=== PATIENT | female | born 1955 | race Caucasian/White ===

== ENCOUNTER 2024-12-14 20:56 | Emergency (ER) | payer OTHER ==
--- NOTE | 2024-12-14 21:20 | RAD REPORT ---
EXAM: CT brain without contrast HISTORY: STROKE ALERT COMPARISON: None TECHNIQUE: Multiple contiguous axial images were obtained and a CT of the brain without contrast. Sag ittal and coronal reformats were performed. One or more of the following dose reduction techniques were used: Automated exposure control, adjust ment of the mA and/or kV according to patient size, and/or iterative reconstruction. FINDINGS: No evidence of hydrocephalus, intracranial hemorrhage, or extra-axial fluid collection. The brain is normal in morphology. No evidence of midline shift or areas of brain edema. The calvarium is intact. The visualized paranasal sinuses and mastoid air cells are essentially clear . IMPRESSION: No evidence of acute intracranial abnormality. The findings were communicated with Ravindra De La Garza MD at 12/14/2024 9:18 PM by telephone.
[2024-12-14] MEDS ORDERED: TENECTEPLASE 50 MG/10 ML VIAL IV ONE (21:22)
[2024-12-14] MEDS ORDERED: HYDRALAZINE HCL 20 MG/ML VIAL ONE (21:26)
[2024-12-14] MEDS ORDERED: LORazepam 2 MG/ML VIAL ONE (21:40)
[2024-12-14] MEDS ORDERED: ONDANSETRON 4 MG/2 ML VIAL ONE (21:47)
[2024-12-14] MEDS ORDERED: NA CHLORIDE 0.9% 1,000 ML ONE (21:47)
[2024-12-14 21:50] LABS: Absolute Lymphocytes (CBC) 1.9 K/uL (0.7-4.9); Hematocrit 44.9 % (36.0-45.0); Hemoglobin 14.4 g/dL (12.0-15.0); MCH 25.7 pg (27.0-35.0); MCHC 32.0 g/dL (32.0-36.0); MCV 80.5 fL (80-100); MPV 8.7 fL (7.6-11.3); Nucleated RBC Absolute Count 0.0 (0-0); Nucleated Red Blood Cells % 0.1 % (0-0); RBC Red Blood Cell Count 5.58 M/uL (3.86-4.86); White Blood Count 6.90 thou/uL (4.3-10.9)
[2024-12-14 22:00] LABS: ALT/SGPT 23 U/L (13-56); AST/SGOT 21 U/L (15-37); Albumin 3.4 g/dL (3.4-5.0); Albumin/Globulin Ratio 0.8 (1.1-1.8); Alkaline Phosphatase 133 U/L (45-117); Anion Gap 8.9 mEq/L (5.0-15.0); BUN Blood Urea Nitrogen 13 mg/dL (7-18); Globulin 4.1 g/dL (2.3-3.5); Glucose Level 113 mg/dL (74-106); Magnesium 2.2 mg/dL (1.6-2.4); Potassium 3.9 mEq/L (3.5-5.1); Troponin High Sensitivity 15.9 pg/mL (<58.9)
[2024-12-14 22:01] LABS: PT Prothrombin Time 10.9 SECONDS (10-13.0); PTT, Activated Partial Thromb 27.4 SECONDS (27.2-37.4); Protime INR 0.96
--- NOTE | 2024-12-14 22:19 | RAD REPORT ---
EXAMINATION: ONE VIEW CHEST XR CLINICAL INDICATION: weak TECHNIQUE: Frontal chest projection is submitted. Examination is limited by patient positioning and t echnique. COMPARISON: No prior exam. FINDINGS: Mild interstitial pulmonary edema suspected. The heart is upper limit of normal in size. No displaced fractures identified. IMPRESSION: Mild CHF is possible.
[2024-12-14 22:27] LABS: Bilirubin Indirect, Calculated 0.0 mg/dL (0.2-0.8)
[2024-12-14 22:39] LABS: Anisocytosis 2+; Blood Morphology Comment NOTED (NOT SEEN); Microcytosis 1+; Ovalocytes 1+; White Blood Cell Scan OK (OK)
--- NOTE | 2024-12-15 00:32 | RAD REPORT ---
ADDENDUM #1 ADDENDUM: THIS REPORT CONTAINS FINDINGS THAT MAY BE CRITICAL TO PATIENT'S CARE: The findings were verbally discussed via telephone conference with Ravindra De La Garza MD by Dr. Lorenzo rivero on 12/15/2024 12:32 AM CDT. The results were acknowledged and understood. Electronically signed by: Shad Prachi RUBY 12/15/2024 12:32 AM CDT 9 End of Addendum PROCEDURE: CT Angiography Head and Neck With Intravenous Contrast CLINICAL INDICATION: The patient is 69 years old and is Female; STROKE ALERT TECHNIQUE: [place] of [place]/head and neck CT angiography protocol performed with intravenous contrast. This CT exam was performed using one or more of the following dose reduction techniques: automated exposure control, adjustment of the mA and/or kV according to patient size, and/or use of iterative r econstruction technique. MIP reconstructed images were created and reviewed. DLP: 350 mGy*cm COMPARISON: CT head without contrast of the same day. FINDINGS: HEAD: RIGHT ANTERIOR CEREBRAL ARTERY: Unremarkable. No occlusion or significant stenosis. Anterior co mmunicating artery is present. No aneurysm. RIGHT MIDDLE CEREBRAL ARTERY: Unremarkable. No occlusion or significant stenosis. No aneurysm. RIGHT POSTERIOR CEREBRAL ARTERY: Unremarkable. No occlusion or significant stenosis. No aneurys m. RIGHT INTRACRANIAL INTERNAL CAROTID ARTERY: Unremarkable. No significant stenosis. No dissectio n or occlusion. RIGHT INTRACRANIAL VERTEBRAL ARTERY: Unremarkable. No significant stenosis. No dissection or oc clusion. LEFT ANTERIOR CEREBRAL ARTERY: Unremarkable. No occlusion or significant stenosis. No aneurysm. LEFT MIDDLE CEREBRAL ARTERY: Focal occlusion of the left M2 segment superior division with paucity of distal branches in the left frontal parietal lobe. No aneurysm. LEFT POSTERIOR CEREBRAL ARTERY: Unremarkable. No occlusion or significant stenosis. No aneurysm . LEFT INTRACRANIAL INTERNAL CAROTID ARTERY: Unremarkable. No significant stenosis. No dissection or occlusion. LEFT INTRACRANIAL VERTEBRAL ARTERY: Unremarkable. No significant stenosis. No dissection or occ lusion. BASILAR ARTERY: Unremarkable. No occlusion or significant stenosis. No aneurysm. OTHER VASCULATURE: No vascular malformation. BRAIN AND EXTRA-AXIAL SPACES: Mild sulcal effacement in the left frontal parietal lobe concerning f or developing ischemic changes. NECK: RIGHT COMMON CAROTID ARTERY: Unremarkable. No significant stenosis. No dissection or occlusion. RIGHT EXTRACRANIAL INTERNAL CAROTID ARTERY: Less than 50% stenosis of the bilateral proximal cervic al ICAs, left worse than right. RIGHT EXTERNAL CAROTID ARTERY: Unremarkable. No occlusion. RIGHT EXTRACRANIAL VERTEBRAL ARTERY: Unremarkable. No significant stenosis. No dissection or oc clusion. LEFT COMMON CAROTID ARTERY: Unremarkable. No significant stenosis. No dissection or occlusion. LEFT EXTRACRANIAL INTERNAL CAROTID ARTERY: Less than 50% stenosis of the bilateral proximal cervica l ICAs, left worse than right. LEFT EXTERNAL CAROTID ARTERY: Unremarkable. No occlusion. LEFT EXTRACRANIAL VERTEBRAL ARTERY: Unremarkable. No significant stenosis. No dissection or occ lusion. LUNG APICES: Visualized lung zones are clear. HEAD and NECK: BONES/JOINTS: Multilevel degenerative changes of the cervical spine. Straightening of the cervical lordosis. Small anterolisthesis of C3 on C4. Osteopenia. No discrete lytic or blastic abnormalities. SOFT TISSUES: Unremarkable. CAROTID STENOSIS REFERENCE USING NASCET CRITERIA: % ICA stenosis = (1 - narrowest ICA diameter/diameter of distal cervical ICA) x 100. Mild - <50% stenosis. Moderate - 50-69% stenosis. Severe - 70-94% stenosis. Near occlusion - 95-99% stenosis. Occluded - 100% stenosis. IMPRESSION: 1. Focal occlusion of the left M2 segment superior division with paucity of distal branches in the left frontal parietal lobe. 2. Mild sulcal effacement in the left frontal parietal lobe concerning for developing ischemic salgado ges. MRI is recommended. 3. Less than 50% stenosis of the bilateral proximal cervical ICAs, left worse than right. 4. Multilevel degenerative changes of the cervical spine. Straightening of the cervical lordosis. S mall anterolisthesis of C3 on C4. Electronically signed by: Shad Velarde DO 12/15/2024 12:24 AM CDT 9 Due to temporary technical issues with the PACS/[employer] reporting system, reports are being carmelita d by the in-house radiologist without review as a courtesy to ensure prompt reporting the interpreting radiologist is fully responsible for the content of the report. Transcribed Date/Time: 12/15/2024 12:35 AM
--- NOTE | 2024-12-15 00:52 | ER ---
Nurse's Notes [facility] Name: Laura Henderson Age: 69 yrs Sex: Female : 1955 Arrival Date: 12/14/2024 Time: 20:56 Bed 3 Private MD: Diagnosis: Acute CVA , acute left frontoparietal CVA, M2 occlusion focal Presentation: 12/14 20:56 Chief complaint: Patient states: HEADACHE FOR TWO DAYS. ONE HOUR AGO STARTED HAVING ha1 RIGHT SIDE WEAKNESS AND SLURRED SPEECH. 20:56 Coronavirus screen: Client denies travel out of the [place] in the last 14 days. Ebola ha1 Screen: No symptoms or risks identified at this time. Initial Sepsis Screen: Does the patient meet any 2 criteria? No. Patient's initial sepsis screen is negative. Does the patient have a suspected source of infection? No. Patient's initial sepsis screen is negative. Risk Assessment: Do you want to hurt yourself or someone else? Patient reports no desire to harm self or others. Onset of symptoms was December 14, 2024. 20:56 Method Of Arrival: Wheelchair ha1 20:56 Acuity: MARIE 2 ha1 Triage Assessment: 21:00 The onset of the patients symptoms was less than three hours ago. af3 21:01 The onset of the patients symptoms was December 14, 2024 at 20:00. af3 Stroke Activation: Physician: ED Attending; Name: JUAN; Notified At: 20:56; Arrived At: Physician: Mid-Level Provider; Name: ; Notified At: 20:56; Arrived At: Physician: [not used]; Name: ; Notified At: ; Arrived At: Physician: [not used]; Name: ; Notified At: ; Arrived At: Physician: [not used]; Name: ; Notified At: ; Arrived At: Historical: - Allergies: 20:56 ozempic; ha1 20:56 PENICILLINS; ha1 20:56 Sulfa (Sulfonamide Antibiotics); ha1 20:56 Vibromycin; ha1 - PMHx: 20:56 acid reflux; Anxiety; COPD; Cyclic vomiting; depressive disorder; diabetes mellitus; ha1 DVT 2022; Fibromyalgia; Hypercholesterolemia; Hypertensive disorder; Mixed connective tissue disease; PTSD; RA; Thyroid problem; TIA; - PSHx: 20:56 Cholecystectomy; hysterectomy; thrombectomy; ha1 - Immunization history:: Adult Immunizations unknown. - Infectious Disease History:: Denies. - Social history:: Smoking status: unknown. Screenin:37 [facility] ED Fall Risk Assessment (Adult) History of falling in the last 3 months, af3 including since admission No falls in past 3 months (0 pts) Confusion or Disorientation No (0 pts) Intoxicated or Sedated No (0 pts) Impaired Gait No (0 pts) Mobility Assist Device Used No (0 pt) Altered Elimination No (0 pt) Score/Fall Risk Level 0 - 2 = Low Risk Oriented to surroundings, Maintained a safe environment, Educated pt \T\ family on fall prevention, incl call for assistance when getting out of bed. 21:37 Abuse screen: Denies threats or abuse. Denies injuries from another. Nutritional af3 screening: No deficits noted. Tuberculosis screening: No symptoms or risk factors identified. 22:06 Kennedy Swallow Protocol Exclusion Criteria: NPO for medical/surgical reason by provider cp4 order Yes MD Notified: Ravindra De La Garza MD. 12/15 01:12 Kennedy Swallow Protocol Brief Cognitive Screen What is your name? Normal, Where are you af3 right now? Normal, What year is it? Normal. Oral Mechanism Examination Facial Symmetry: Normal, Motion: Normal, Lip Closure: Normal, Oral Mechanism Result: Normal. 3 oz Water Swallow Challenge: Pt able to drink all water without stopping, coughing, choking or throat clearing: Yes Result: PASS MD Notified: Ravindra De La Garza MD. Assessment: 12/14 21:37 VAN Scoring: Arm Drift: Minor drift Visual Disturbance: No visual disturbance noted. af3 Aphasia: No aphasia noted. Neglect: No neglect noted. 21:37 Kennedy Swallow Protocol Exclusion Criteria: NPO for medical/surgical reason by provider af3 order Yes. TNKase (Tenecteplase) Screening: Indications: Definite evidence of stroke, ischemic, embolic, or hypertensive: Yes. Treatment will start within 4.5 hours onset of symptoms: Yes. No evidence of intracranial hemorrhage or CT of head and no evidence of peripheral hemorrhage or recent CVA: Yes. Consent for thrombolytic therapy: Yes. 21:37 General: Appears in no apparent distress. comfortable, well groomed, well developed, af3 Behavior is cooperative, appropriate for age, anxious. 21:37 Pain: Denies pain. Neuro: Level of Consciousness is awake, alert, obeys commands, af3 Oriented to person, place, time, situation, Appropriate for age Charge Manager are weak on right Gait is unsteady. Cardiovascular: Patient's skin is warm and dry. Respiratory: Airway is patent Respiratory effort is even, unlabored, Respiratory pattern is regular, symmetrical. 22:52 Reassessment: Patient appears in no apparent distress at this time. Patient and/or af3 family updated on plan of care and expected duration. Pain level reassessed. Patient is alert, oriented x 3, equal unlabored respirations, skin warm/dry/pink. 23:28 Elvira Swallow Protocol Brief Cognitive Screen. af3 12/15 00:24 Reassessment: Patient appears in no apparent distress at this time. Patient and/or af3 family updated on plan of care and expected duration. Pain level reassessed. Patient is alert, oriented x 3, equal unlabored respirations, skin warm/dry/pink. 01:25 Reassessment: Patient appears in no apparent distress at this time. Patient and/or af3 family updated on plan of care and expected duration. Pain level reassessed. Patient is alert, oriented x 3, equal unlabored respirations, skin warm/dry/pink. Vital Signs: 12/14 20:56 BP 177 / 98; Pulse 88; Resp 18; Temp 97.6; Pulse Ox 93% on R/A; Weight 69.4 kg; Height ha1 5 ft. 3 in. ; 21:30 BP 174 / 86; Pulse 80; Pulse Ox 94% on 3 lpm NC; af3 21:37 BP 163 / 86; Pulse 80; Resp 18; Pulse Ox 94% on 3 lpm NC; af3 21:45 BP 159 / 77; Pulse 80; Resp 18; Pulse Ox 94% on 2 lpm NC; af3 22:00 BP 127 / 84; Pulse 87; Resp 18; Pulse Ox 92% on 3 lpm NC; af3 22:20 BP 154 / 78; Pulse 88; Resp 18; Pulse Ox 92% on 3 lpm NC; af3 22:45 BP 149 / 84; Pulse 82; Resp 18; Pulse Ox 92% on 4 lpm NC; af3 12/15 00:25 BP 149 / 68; Pulse 80; Resp 18; Pulse Ox 95% on 4 lpm NC; af3 01:25 BP 160 / 76; Pulse 80; Resp 18; Pulse Ox 94% on 4 lpm NC; af3 12/14 20:56 Body Mass Index 27.10 (69.40 kg, 160.02 cm) ha1 [place]anda Coma Score: 12/14 21:08 Eye Response: spontaneous(4). Motor Response: obeys commands(6). Verbal Response: sp4 oriented(5). Total: 15. NIH Stroke Scale Scores: 21:08 NIHSS Score: 3 sp4 21:37 NIHSS Score: 3 af3 ED Course: 20:58 Patient arrived in ED. im 20:59 Ravindra De La Garza MD is Attending Physician. sp4 21:05 Inserted saline lock: 20 gauge in left antecubital area, using aseptic technique. Blood rv1 collected. Flushed with 10 mL NS. 21:11 Basic Metabolic Panel Sent. rv1 21:11 CBC with Diff Sent. rv1 21:11 Hepatic Function Sent. rv1 21:11 High Sensitivity Troponin Sent. rv1 21:11 Magnesium Sent. rv1 21:11 Protime (+inr) Sent. rv1 21:11 Ptt, Activated Sent. rv1 21:14 CT Stroke Brain w/o Contrast In Process Unspecified. EDMS 21:14 Arlene Storey, RN is Primary Nurse. af3 21:37 No provider procedures requiring assistance completed. af3 21:37 Patient has correct armband on for positive identification. Bed in low position. Call af3 light in reach. Provided Education on: call light use . 21:37 Arm band placed on. af3 22:05 Triage completed. ha1 22:08 Stroke CXR 1 View In Process Unspecified. EDMS 23:43 called to initiated transfer, was told to wait for CTA. marisabel 12/15 00:00 CT Head Angio In Process Unspecified. EDMS 00:00 CT Neck Angio In Process Unspecified. EDMS 00:54 0032 initiated transfer with Lamberto at [facility] . Pt was accepted \T\ 005 Accepting Alicia Almazan. Admin Lamberto R \T\005. Pt will go ground EMS per family request. ER to ER. Number for nurse to nurse report [phone]. [facility] ETA 15 MINS or less. 01:39 Patient transferred, IV remains in place. af3 Administered Medications: 12/14 21:28 Drug: hydrALAZINE IVP 10 mg IVP once Route: IVP; Site: left antecubital; ha1 23:21 Follow up: Response: No adverse reaction af3 21:38 Drug: Ativan IVP 1 mg IVP once Route: IVP; Site: left antecubital; ha1 23:21 Follow up: Response: No adverse reaction af3 21:41 Drug: TNK FOR STROKE - Tenecteplase IV (Administer 10 ml NS flush BEFORE and af3 AFTER tenecteplase) 17.5 mg IV at per protocol once; 0.25mg/kg, MAX DOSE 25 mg, IVP over 5 seconds {Co-Signature: al5 (Laura Coker RN).} Route: IV; Rate: per protocol; Site: right forearm; 22:00 Follow up: Response: No adverse reaction; IV Status: Completed infusion af3 21:53 Drug: NS 0.9% IV 1000 ml IV at 125 ml/hr once; to be given at 125 ml / hour Route: IV; al5 Rate: 125 ml/hr; Site: right forearm; 23:00 Follow up: Response: No adverse reaction; IV Status: Completed infusion; IV Intake: af3 1000ml 21:53 Drug: Ondansetron IVP 4 mg IVP once; over 2 minutes Route: IVP; Site: left antecubital; al5 23:21 Follow up: Response: No adverse reaction af3 12/15 01:24 Drug: LORazepam PO 1 mg PO once Route: PO; af3 01:42 Follow up: Response: No adverse reaction; Medication Administered at Departure af3 Medication: 12/14 21:37 VIS not applicable for this client. af3 Point of Care Testing: Blood Glucose: 21:21 Blood Glucose: 137 mg/dL; af3 Ranges: Intake: 23:00 IV: 1000ml; Total: 1000ml. af3 Outcome: 12/15 00:52 ER care complete, transfer ordered by MD. diaz 01:38 Transferred by [facility] to [facility], Transfer form af3 completed. 01:38 Condition: stable 01:38 Instructed on the need for transfer, Demonstrated understanding of instructions, follow-up care, 01:45 Patient left the ED. af3 NIH Stroke Scale - NIH Stroke Score Date: 12/14/2024 Time: 21:08 Total Score = 3 10. Dysarthria (speech clarity - read or repeat words) - 0(Normal) 11. Extinction and Inattention (visual/tactile/auditory/spatial/personal) - 0(No abnormality) 1a. Level of Consciousness (LOC) - 0(Alert) 1b. Level of Consciousness (LOC) (Month \T\ Age) - 0(Both) 1c. LOC Commands (Open \T\ Closes Eyes/Cartridge Loader) - 0(Both) 2. Best Gaze (Lateral Gaze Paresis) - 0(Normal) 3. Visual Field Loss - 0(No visual loss) 4. Facial Palsy - 0(Normal) 5a. Left Arm: Motor (10-second hold) - 0(No drift) 5b. Right Arm: Motor (10-second hold) - 1(Drift) 6a. Left Leg: Motor (5-second hold - always test supine) - 0(No drift) 6b. Right Leg: Motor (5-second hold - always test supine) - 1(Drift) 7. Limb Ataxia (finger/nose \T\ heel/rodriguez - test with eyes open) - 0(Absent) 8. Sensory Loss (pinprick arms/legs/face) - 1(Mild to moderate loss) 9. Best Language: Aphasia (description/naming/reading) - 0(No aphasia) Initials: sp4 NIH Stroke Scale - NIH Stroke Score Date: 12/14/2024 Time: 21:37 Total Score = 3 10. Dysarthria (speech clarity - read or repeat words) - 0(Normal) 11. Extinction and Inattention (visual/tactile/auditory/spatial/personal) - 0(No abnormality) 1a. Level of Consciousness (LOC) - 0(Alert) 1b. Level of Consciousness (LOC) (Month \T\ Age) - 0(Both) 1c. LOC Commands (Open \T\ Closes Eyes/Cartridge Loader) - 0(Both) 2. Best Gaze (Lateral Gaze Paresis) - 0(Normal) 3. Visual Field Loss - 0(No visual loss) 4. Facial Palsy - 0(Normal) 5a. Left Arm: Motor (10-second hold) - 0(No drift) 5b. Right Arm: Motor (10-second hold) - 1(Drift) 6a. Left Leg: Motor (5-second hold - always test supine) - 0(No drift) 6b. Right Leg: Motor (5-second hold - always test supine) - 1(Drift) 7. Limb Ataxia (finger/nose \T\ heel/rodriguez - test with eyes open) - 0(Absent) 8. Sensory Loss (pinprick arms/legs/face) - 1(Mild to moderate loss) 9. Best Language: Aphasia (description/naming/reading) - 0(No aphasia) Initials: af3 Signatures: Dispatcher [employer] EDMS Chelly Soto RN RN ha1 Zee Sevilla rv1 Ravindra De La Garza MD MD sp4 Bhumi Vergara Christina cp4 Lori Diaz [facility] Laura Coker RN RN al5 Arlene Storey RN RN af3 Laura Coker RN al5 Corrections: (The following items were deleted from the chart) 12/14 22:04 22:00 Chief complaint: af3 af3 12/15 01:36 10 21:37 Kennedy Swallow Protocol Result: FAIL af3 af3 12/15 01:55 01:00 Kennedy Swallow Protocol Brief Cognitive Screen What is your name? Normal, af3 Where are you right now? Normal, What year is it? Normal. Oral Mechanism Examination Facial Symmetry: Normal, Motion: Normal, Lip Closure: Normal, Oral Mechanism Result: Normal. 3 oz Water Swallow Challenge: Pt able to drink all water without stopping, coughing, choking or throat clearing: Yes Result: PASS Notified: Ravindra De La Garza MD af3 01:56 12/14 23:27 Blood Glucose: Blood Glucose Kpfcojy=898 mg/dL. af3 af3
--- NOTE | 2024-12-15 00:53 | EDPHYS ---
Physician Documentation [facility] Name: Laura Hancock Age: 69 yrs Sex: Female : 1955 Arrival Date: 12/14/2024 Time: 20:56 Bed 3 Private MD: ED Physician Ravindra De La Garza HPI: 12/14 20:59 This 69 yrs old Female presents to ER via Unassigned with complaints of sp4 weakeness . 22:11 Patient presents with acute onset over right sided weakness associated with confusion. sp4 This reportedly started at 8 PM. Acutely at home. Patient was making shopping list and the pain fell out of her hand. Patient has history of TIA with similar prior symptoms. Patient has past surgical history of hysterectomy, cholecystectomy, right lower extremity thrombectomy, allergies to sulfa, Vibramycin, penicillin, Ozempic. Past medical history positive for mixed congestive tissue disease, rheumatoid arthritis, fibromyalgia, type 2 diabetes, depression, anxiety, PTSD, COPD, hypothyroidism, GERD, TIA, hypertension, hypercholesterolemia, cyclical vomiting disorder, DVT in 2022, right lower extremity. Hepatitis B carrier.. Medication list includes levothyroxine 200 mcg daily, Januvia 100 mg daily, pantoprazole 40 mg daily, albuterol sulfate as needed, hydrocodone acetaminophen 10 mg every 6 hours as needed, clonazepam 1 mg twice a day Leflunomide 20 mg daily, cyclobenzaprine 10 mg every 8 hours, zolpidem 10 mg in the evening, mirtazapine 45 mg daily, hydroxychloroquine 200 mg daily, clopidogrel 75 mg daily, losartan 100 mg daily, Crestor 10 mg daily, propranolol 40 mg twice daily, Lantus Solostar insulin 16 units at 7 PM, amlodipine 5 mg daily,. Historical: - Allergies: 20:56 ozempic; ha1 20:56 PENICILLINS; ha1 20:56 Sulfa (Sulfonamide Antibiotics); ha1 20:56 Vibromycin; ha1 - PMHx: 20:56 acid reflux; Anxiety; COPD; Cyclic vomiting; depressive disorder; diabetes mellitus; ha1 DVT 2022; Fibromyalgia; Hypercholesterolemia; Hypertensive disorder; Mixed connective tissue disease; PTSD; RA; Thyroid problem; TIA; - PSHx: 20:56 Cholecystectomy; hysterectomy; thrombectomy; ha1 - Immunization history:: Adult Immunizations unknown. - Infectious Disease History:: Denies. - Social history:: Smoking status: unknown. ROS: 22:15 Constitutional: Negative for fever, chills, and weight loss, positive acute right-sided sp4 weakness, positive confusion, positive numbness of right side 22:15 All other systems are negative, Exam: 22:03 Constitutional: This is a well developed, well nourished patient who is awake, alert, sp4 and in no acute distress. Head/Face: Normocephalic, atraumatic. Eyes: Pupils equal round and reactive to light, extra-ocular motions intact. Lids and lashes normal. Conjunctiva and sclera are not injected. Cornea within normal limits. Periorbital areas with no swelling, redness, or edema. ENT: Nares patent. No nasal discharge, no septal abnormalities noted. Tympanic membranes are normal and external auditory canals are clear. Oropharynx with no redness, swelling, or masses, exudates, or evidence of obstruction, uvula midline. Mucous membranes moist. Neck: Trachea midline, no thyromegaly or masses palpated, and no cervical lymphadenopathy. Supple, full range of motion without nuchal rigidity, or vertebral point tenderness. Chest/axilla: Normal chest wall appearance and motion. Nontender with no deformity. No lesions are appreciated. Cardiovascular: Regular rate and rhythm with a normal S1 and S2. No gallops, murmurs, or rubs. No pulse deficits. Respiratory: Lungs have equal breath sounds bilaterally, clear to auscultation and percussion. No rales, rhonchi or wheezes noted. No increased work of breathing, no retractions or nasal flaring. Abdomen/GI: Soft, with normal bowel sounds. No distension or tympany. No guarding or rebound. No evidence of tenderness throughout. Back: No spinal tenderness. No costovertebral tenderness. Skin: Warm, dry with normal turgor. Normal color with no rashes, no lesions, and no evidence of cellulitis. MS/ Extremity: Pulses equal, no cyanosis. Neurovascular intact. Full, normal range of motion. Neuro: Awake and alert, GCS 15, oriented to person, place, time, and situation. Cranial nerves II-XII grossly intact. Right lower extremity strength 4 out of 5, right upper extremity strength 4 out of 5, left lower extremity strength 5 out of 5, left upper extremity strength 5 out of 5. Mild diminished sensation right arm and leg . Ambulates with assistance with visible weakness of the right lower extremity Psych: Awake, alert, with orientation to person, place and time. Behavior, mood, and affect are within normal limits 22:16 ECG was reviewed by the Attending Physician. EKG at 2123 sinus rhythm rate 79, left sp4 atrial enlargement, left axis deviation, borderline EKG. No ST elevation or depression An electrocardiogram was deferred on this patient Vital Signs: 20:56 BP 177 / 98; Pulse 88; Resp 18; Temp 97.6; Pulse Ox 93% on R/A; Weight 69.4 kg; Height ha1 5 ft. 3 in. ; 21:30 BP 174 / 86; Pulse 80; Pulse Ox 94% on 3 lpm NC; af3 21:37 BP 163 / 86; Pulse 80; Resp 18; Pulse Ox 94% on 3 lpm NC; af3 21:45 BP 159 / 77; Pulse 80; Resp 18; Pulse Ox 94% on 2 lpm NC; af3 22:00 BP 127 / 84; Pulse 87; Resp 18; Pulse Ox 92% on 3 lpm NC; af3 22:20 BP 154 / 78; Pulse 88; Resp 18; Pulse Ox 92% on 3 lpm NC; af3 22:45 BP 149 / 84; Pulse 82; Resp 18; Pulse Ox 92% on 4 lpm NC; af3 12/15 00:25 BP 149 / 68; Pulse 80; Resp 18; Pulse Ox 95% on 4 lpm NC; af3 01:25 BP 160 / 76; Pulse 80; Resp 18; Pulse Ox 94% on 4 lpm NC; af3 12/14 20:56 Body Mass Index 27.10 (69.40 kg, 160.02 cm) ha1 NIH Stroke Scale Scores: 12/14 21:08 NIHSS Score: 3 sp4 21:37 NIHSS Score: 3 af3 [place] Coma Score: 21:08 Eye Response: spontaneous(4). Motor Response: obeys commands(6). Verbal Response: sp4 oriented(5). Total: 15. MDM: 21:08 Medical Screening Exam initiated sp4 21:24 ED course: At this time 2123 tenecteplase was ordered for the patient. After extensive sp4 discussion with the patient and her family decision was made to administer tenecteplase. The patient was warned that she is high risk for bleeding since she has taken Plavix 75 mg. Day. 22:15 Differential Diagnosis: CVA, electrolyte abnormality, alcohol intoxication, sp4 hypoglycemia, intracranial bleed, meningitis, overdose, pneumonia, seizure, sepsis, TIA, UTI, volume depletion. Data reviewed: vital signs, nurses notes, old medical records, lab test result(s), EKG, radiologic studies, CT scan. 22:18 Consideration of Admission/Observation Escalation of care including sp4 admission/observation considered. Management of patient was discussed with the following: Hogshead Builder: Marisabel HSIEH -neurologist recommended tenecteplase and transfer for higher level of care.. ED course: FINDINGS: No evidence of hydrocephalus, intracranial hemorrhage, or extra-axial fluid collection. The brain is normal in morphology. No evidence of midline shift or areas of brain edema. The calvarium is intact. The visualized paranasal sinuses and mastoid air cells are essentially clear. IMPRESSION: No evidence of acute intracranial abnormality. The findings were communicated with Ravindra De La Garza MD at 12/14/2024 9:18 PM by telephone. . 12/15 00:40 ED course: CTA - FINDINGS: HEAD: RIGHT ANTERIOR CEREBRAL ARTERY: Unremarkable. No sp4 occlusion or significant stenosis. Anterior communicating artery is present. No aneurysm. RIGHT MIDDLE CEREBRAL ARTERY: Unremarkable. No occlusion or significant stenosis. No aneurysm. RIGHT POSTERIOR CEREBRAL ARTERY: Unremarkable. No occlusion or significant stenosis. No aneurysm. RIGHT INTRACRANIAL INTERNAL CAROTID ARTERY: Unremarkable. No significant stenosis. No dissection or occlusion. RIGHT INTRACRANIAL VERTEBRAL ARTERY: Unremarkable. No significant stenosis. No dissection or occlusion. LEFT ANTERIOR CEREBRAL ARTERY: Unremarkable. No occlusion or significant stenosis. No aneurysm. LEFT MIDDLE CEREBRAL ARTERY: Focal occlusion of the left M2 segment superior division with paucity of distal branches in the left frontal parietal lobe. No aneurysm. LEFT POSTERIOR CEREBRAL ARTERY: Unremarkable. No occlusion or significant stenosis. No aneurysm. LEFT INTRACRANIAL INTERNAL CAROTID ARTERY: Unremarkable. No significant stenosis. No dissection or occlusion. LEFT INTRACRANIAL VERTEBRAL ARTERY: Unremarkable. No significant stenosis. No dissection or occlusion. BASILAR ARTERY: Unremarkable. No occlusion or significant stenosis. No aneurysm. OTHER VASCULATURE: No vascular malformation. BRAIN AND EXTRA-AXIAL SPACES: Mild sulcal effacement in the left frontal parietal lobe concerning for developing ischemic changes. NECK: RIGHT COMMON CAROTID ARTERY: Unremarkable. No significant stenosis. No dissection or occlusion. RIGHT EXTRACRANIAL INTERNAL CAROTID ARTERY: Less than 50% stenosis of the bilateral proximal cervical ICAs, left worse than right. RIGHT EXTERNAL CAROTID ARTERY: Unremarkable. No occlusion. RADIOLOGY SERVICES REPORT (Continued) Name: CARL HANCOCKJUAN SCHULTZ CC: LAURA HANCOCK / Report: [id number] Radiology Services Report Page 3 of 4 RIGHT EXTRACRANIAL VERTEBRAL ARTERY: Unremarkable. No significant stenosis. No dissection or occlusion. LEFT COMMON CAROTID ARTERY: Unremarkable. No significant stenosis. No dissection or occlusion. LEFT EXTRACRANIAL INTERNAL CAROTID ARTERY: Less than 50% stenosis of the bilateral proximal cervical ICAs, left worse than right. LEFT EXTERNAL CAROTID ARTERY: Unremarkable. No occlusion. LEFT EXTRACRANIAL VERTEBRAL ARTERY: Unremarkable. No significant stenosis. No dissection or occlusion. LUNG APICES: Visualized lung zones are clear. HEAD and NECK: BONES/JOINTS: Multilevel degenerative changes of the cervical spine. Straightening of the cervical lordosis. Small anterolisthesis of C3 on C4. Osteopenia. No discrete lytic or blastic abnormalities. SOFT TISSUES: Unremarkable. CAROTID STENOSIS REFERENCE USING NASCET CRITERIA: % ICA stenosis = (1 - narrowest ICA diameter/diameter of distal cervical ICA) x 100. IMPRESSION: 1. Focal occlusion of the left M2 segment superior division with paucity of distal branches in the left frontal parietal lobe. 2. Mild sulcal effacement in the left frontal parietal lobe concerning for developing ischemic changes. MRI is recommended. 3. Less than 50% stenosis of the bilateral proximal cervical ICAs, left worse than right. RADIOLOGY SERVICES REPORT Radiology Services Report Page 4 of 4 4. Multilevel degenerative changes of the cervical spine. Straightening of the cervical lordosis. Small anterolisthesis of C3 on C4. Electronically signed by: Shad Velarde DO 12/15/2024 12:24 AM. 12/14 21:00 Order name: Basic Metabolic Panel; Complete Time: 00:29 sp4 12/14 21:00 Order name: CBC with Diff; Complete Time: 00:29 sp4 12/14 21:00 Order name: Hepatic Function; Complete Time: 00:29 sp4 12/14 21:00 Order name: High Sensitivity Troponin; Complete Time: 00:29 sp4 12/14 21:00 Order name: Magnesium; Complete Time: 00:29 sp4 12/14 21:00 Order name: Protime (+inr); Complete Time: 22:15 sp4 12/14 21:00 Order name: Ptt, Activated; Complete Time: 22:15 sp4 12/14 21:17 Order name: Glucose, Ancillary Testing; Complete Time: 21:21 EDMS 12/14 21:53 Order name: CBC Smear Scan; Complete Time: 00:29 EDMS 12/14 21:00 Order name: CT Head Angio; Complete Time: 00:42 sp4 12/14 21:00 Order name: CT Neck Angio; Complete Time: 00:42 sp4 12/14 21:00 Order name: CT Stroke Brain w/o Contrast; Complete Time: 21:21 sp4 12/14 21:00 Order name: Stroke CXR 1 View; Complete Time: 00:29 sp4 12/14 21:00 Order name: EKG; Complete Time: 21:01 4 12/14 21:00 Order name: Accucheck; Complete Time: 21:11 4 12/14 21:00 Order name: Cardiac monitoring; Complete Time: 21:17 sp4 12/14 21:00 Order name: EKG - Nurse/Tech; Complete Time: 21:53 4 12/14 21:00 Order name: IV Saline Lock; Complete Time: 21:05 sp4 12/14 21:00 Order name: Labs collected and sent; Complete Time: 21:11 sp4 12/14 21:00 Order name: NPO; Complete Time: :17 sp4 12/15 00:38 Interpretation: t. 4 12/14 21:00 Order name: O2 Per Protocol; Complete Time: 21:17 sp4 12/14 21:00 Order name: O2 Sat Monitoring; Complete Time: 21:17 sp4 12/14 21:00 Order name: Stroke Swallow Screen; Complete Time: 21:17 sp4 12/15 00:39 Order name: Misc. Order: May cancel NPO Do swallow trial Give PO Ativan; Complete Time: sp4 00:53 EC/18 21:24 Rate is 79 beats/min. Rhythm is regular, Sinus Rhythm. Left axis deviation noted. HI sp4 interval is normal. QRS interval is normal. QT interval is normal. No Q waves. T waves are Normal. No ST changes noted. Clinical impression: No evidence of ischemia. Interpreted by me. Reviewed by me. Administered Medications: 21:28 Drug: hydrALAZINE IVP 10 mg IVP once Route: IVP; Site: left antecubital; ha1 23:21 Follow up: Response: No adverse reaction af3 21:38 Drug: Ativan IVP 1 mg IVP once Route: IVP; Site: left antecubital; ha1 23:21 Follow up: Response: No adverse reaction af3 21:41 Drug: TNK FOR STROKE - Tenecteplase IV (Administer 10 ml NS flush BEFORE and af3 AFTER tenecteplase) 17.5 mg IV at per protocol once; 0.25mg/kg, MAX DOSE 25 mg, IVP over 5 seconds {Co-Signature: al5 (Laura Coker RN).} Route: IV; Rate: per protocol; Site: right forearm; 22:00 Follow up: Response: No adverse reaction; IV Status: Completed infusion af3 21:53 Drug: NS 0.9% IV 1000 ml IV at 125 ml/hr once; to be given at 125 ml / hour Route: IV; al5 Rate: 125 ml/hr; Site: right forearm; 23:00 Follow up: Response: No adverse reaction; IV Status: Completed infusion; IV Intake: af3 1000ml 21:53 Drug: Ondansetron IVP 4 mg IVP once; over 2 minutes Route: IVP; Site: left antecubital; al5 23:21 Follow up: Response: No adverse reaction af3 12/15 01:24 Drug: LORazepam PO 1 mg PO once Route: PO; af3 01:42 Follow up: Response: No adverse reaction; Medication Administered at Departure af3 Point of Care Testing: Blood Glucose: 12/14 21:21 Blood Glucose: 137 mg/dL; af3 Ranges: Critical Glucose Levels:Adult <50 mg/dl or >400 mg/dl <40 mg/dl or >180 mg/dl Disposition: 22:04 Critical Care:. sp4 Disposition Summary: 12/15/24 00:52 Transfer Ordered Notes: Transfer Location: [facility] sp4 Reason: Higher level of care sp4 Condition: Stable sp4 Problem: new sp4 Symptoms: have improved sp4 Accepting Physician: [facility] neurology(12/15/24 01:45) af3 Diagnosis - Acute CVA , acute left frontoparietal CVA, M2 occlusion focal sp4 Forms: - Medication Reconciliation Form sp4 - SBAR form sp4 Critical care time excluding procedures: 22:04 Critical care time: Bedside Care: 36 minutes, Consultation: 12 minutes, Family sp4 Intervention: 12 minutes. Total time: 60 minutes NIH Stroke Scale - NIH Stroke Score Date: 12/14/2024 Time: 21:08 Total Score = 3 10. Dysarthria (speech clarity - read or repeat words) - 0(Normal) 11. Extinction and Inattention (visual/tactile/auditory/spatial/personal) - 0(No abnormality) 1a. Level of Consciousness (LOC) - 0(Alert) 1b. Level of Consciousness (LOC) (Month \T\ Age) - 0(Both) 1c. LOC Commands (Open \T\ Closes Eyes/Driver Material Handler) - 0(Both) 2. Best Gaze (Lateral Gaze Paresis) - 0(Normal) 3. Visual Field Loss - 0(No visual loss) 4. Facial Palsy - 0(Normal) 5a. Left Arm: Motor (10-second hold) - 0(No drift) 5b. Right Arm: Motor (10-second hold) - 1(Drift) 6a. Left Leg: Motor (5-second hold - always test supine) - 0(No drift) 6b. Right Leg: Motor (5-second hold - always test supine) - 1(Drift) 7. Limb Ataxia (finger/nose \T\ heel/rodriguez - test with eyes open) - 0(Absent) 8. Sensory Loss (pinprick arms/legs/face) - 1(Mild to moderate loss) 9. Best Language: Aphasia (description/naming/reading) - 0(No aphasia) Initials: sp4 NIH Stroke Scale - NIH Stroke Score Date: 12/14/2024 Time: 21:37 Total Score = 3 10. Dysarthria (speech clarity - read or repeat words) - 0(Normal) 11. Extinction and Inattention (visual/tactile/auditory/spatial/personal) - 0(No abnormality) 1a. Level of Consciousness (LOC) - 0(Alert) 1b. Level of Consciousness (LOC) (Month \T\ Age) - 0(Both) 1c. LOC Commands (Open \T\ Closes Eyes/Driver Material Handler) - 0(Both) 2. Best Gaze (Lateral Gaze Paresis) - 0(Normal) 3. Visual Field Loss - 0(No visual loss) 4. Facial Palsy - 0(Normal) 5a. Left Arm: Motor (10-second hold) - 0(No drift) 5b. Right Arm: Motor (10-second hold) - 1(Drift) 6a. Left Leg: Motor (5-second hold - always test supine) - 0(No drift) 6b. Right Leg: Motor (5-second hold - always test supine) - 1(Drift) 7. Limb Ataxia (finger/nose \T\ heel/rodriguez - test with eyes open) - 0(Absent) 8. Sensory Loss (pinprick arms/legs/face) - 1(Mild to moderate loss) 9. Best Language: Aphasia (description/naming/reading) - 0(No aphasia) Initials: af3 Signatures: Dispatcher [employer] EDChelly Cherry RN RN ha1 Shayy Rai, PA-C PA-C sb4 Ravindra De La Garza MD MD sp4 Laura Coker RN RN al5 Arlene Storey RN RN af3 Laura Coker RN5 Corrections: (The following items were deleted from the chart) 12/15 01:45 00:52 [facility] neurology sp4 af3
[2024-12-15] MEDS ORDERED: LORAZEPAM 1 MG TABLET ONE (01:19)
[2024-12-15 06:38] VITALS: TEMP 97.6
[2024-12-15 06:48] VITALS: BP 160/76; O2SAT 94
== END 2024-12-15 01:45 | disposition short-term general hospital (02) ==
LOC: ER 20:56
DX: I63.512 Cerebral infarction due to unspecified occlusion or stenosis of left middle cerebral artery (principal); I10 Essential (primary) hypertension; R29.703 NIHSS score 3
CPT/HCPCS: 96365; 96361; 92977; 93005; 85025; 80048; 36415; 83735; 85610; 82947; 80076; 85730; 84484; 70496; 70498; 70450; 71045; 96375; 99291; 99292; Q9967; J3101; J0360; J2405; J7030